=== PATIENT | female | born 1955 | race Caucasian/White ===

== ENCOUNTER → 2024-09-18 | Outpatient (CLI) | payer MEDICARE, SELFPAY ==
--- NOTE | 2024-09-18 12:52 | XR_ITS ---
Examination: PA lateral chest 2 views TECHNIQUE: Upright PA lateral chest 2 views Date and time: 09/18/2024 1318 hours INDICATIONS: Smoking history hypertension FINDINGS: Normal heart size Lungs are clear. Moderate osteopenia IMPRESSION: No active disease
--- NOTE | 2024-09-18 12:52 | XR_ITS ---
EXAMINATION: Cervical spine, 5 views Technique: Cervical spine AP, AP odontoid, lateral, bilateral obliques, 5 views Exam date and time: September 18, 2024 1312 hours Comparison April 27, 2022 INDICATIONS: Neck pain radiating to the arms with numbness in the arms months FINDINGS: Moderate osteopenia Advanced degenerative disc disease C3-C4, C4-C5, C5-C6, C6-C7 with diffuse moderate to advanced bilateral neural foraminal stenosis at these levels, most prominent C3-C4, C4-C5 Intact odontoid No cervical fracture IMPRESSION: Advanced degenerative disc disease as above
[2024-09-18 13:45] LABS: Basophils # (Auto) 0.1 Thou/mm3 (0.0-0.2); Basophils % (Auto) 1 % (0-2.5); Eosinophils # (Auto) 0.5 Thou/mm3 (0.0-0.5); Eosinophils % (Auto) 6 % (0-10); Hematocrit 38.8 % (36.0-46.0); Hemoglobin 13.3 g/dL (12.0-16.0); Immature Granulocytes % (Auto) 0 % (0-0); Immature Granulocytes Auto 0.01 Thou/mm3 (0.00-0.00); Lymphocytes # (Auto) 2.7 Thou/mm3 (1.0-4.8); Lymphocytes % (Auto) 34 % (10-50); Mean Corpuscular HGB Conc 34.3 g/dl (31.0-37.0); Mean Corpuscular Hemoglobin 29.7 pg (25.0-35.0); Mean Corpuscular Volume 87 fL (80-100); Monocytes # (Auto) 0.8 Thou/mm3 (0.0-0.8); Monocytes % (Auto) 10 % (0-12); Neutrophils # (Auto) 3.9 Thou/mm3 (1.8-7.7); Neutrophils % (Auto) 50 % (37-80); Nucleated Red Blood Cell % 0 /100 WBC (0); Platelet Count 398 Thou/mm3 (140-440); RDW Standard Deviation 42.5 fL (36.4-46.3); Red Blood Count 4.48 Miln/mm3 (4.00-5.20); White Blood Count 7.9 Thou/mm3 (3.6-11.0)
[2024-09-18 14:14] LABS: Alanine Aminotransferase 10 U/L (10-49); Albumin, Serum 4.7 gm/dL (3.4-4.8); Albumin/Globulin Ratio 1.7 (1.2-2.2); Alkaline Phosphatase 122 U/L (46-116); Anion Gap 8 (7-16); BUN/Creatinine Ratio 16 Ratio (12-20); Bilirubin,Total 0.5 mg/dL (0.3-1.2); Blood Urea Nitrogen 14 mg/dL (9-23); Calcium 9.6 mg/dL (8.3-10.6); Calcium (Corrected) 9.6 mg/dL (8.5-10.1); Carbon Dioxide 24.7 mMol/L (20.0-31.0); Cardiac Risk Estimate 4.4 RATIO (3.7-5.6); Chloride 109 mMol/L (98-107); Cholesterol 191 mg/dL (132-200); Creatinine (Component) 0.9 mg/dL (0.6-1.3); Globulin 2.7 gm/dL (2.3-3.5); Glucose 108 mg/dL (74-106); HDL Cholesterol 43 mg/dL (40-60); LDL Cholesterol,Calculated 131 mg/dL (0-130); Osmolality,Calculated 284 (275-295); Potassium 4.6 mMol/L (3.4-5.1); Sodium 142 mMol/L (136-145); Thyroid Stimulating Hormone < 0.01 uIU/mL (0.55-4.78); Total Protein 7.4 gm/dL (5.7-8.2); Triglycerides 87 mg/dL (30-150); eGFR > 60 See Note
[2024-09-18 14:31] LABS: T4 (Thyroxine) 11.9 mcg/dL (4.5-10.9)
== END | disposition home or self-care (01) ==
LOC: CDIM 12:42 → COPL 13:25
PROVIDERS: PCP Family Medicine; Referring Provider Family Medicine; Visit Provider Radiology Diagnostic Radiology
DX: R05.2 Subacute cough (principal); M50.323 Other cervical disc degeneration at C6-C7 level; E03.9 Hypothyroidism, unspecified; I79.8 Other disorders of arteries, arterioles and capillaries in diseases classified elsewhere; G90.09 Other idiopathic peripheral autonomic neuropathy; R79.9 Abnormal finding of blood chemistry, unspecified
CPT/HCPCS: 36415; 71046; 72050; 80053; 80061; 84436; 84443; 85025

== ENCOUNTER 2024-12-16 09:31 | Outpatient (AMB) | payer MEDICARE, SELFPAY ==
[2024-12-16 09:46] VITALS: BP 170/65; PULSE 63; RESP 18; TEMP 36.8; O2SAT 63; BMI 25.6
--- NOTE | 2024-12-16 09:46 | GSCOFFNT_ITS ---
Vital Signs - [facility] 12/16/24 09:46 Height 1.47 m Height Method Stated Weight 55.565 kg Weight Measurement Method Standing Scale BMI 25.6 BP 170/65 H Blood Pressure Source Automatic Cuff Blood Pressure Location Right Upper Arm Position Sitting Respiration 18 Pulse 63 Pulse Source Monitor Temp 98.2 F Temp Source Temporal Artery Scan Pulse Oximetry (%) 63 L Oxygen Delivery Method Room Air Med/Allergies Allergies & Medications Allergies Beta-Blockers (Beta-Adrenergic Bloc Allergy (Severe, Unverified 12/16/24 09:48) CAUSES STROKES ceftriaxone Allergy (Severe, Verified 12/16/24 09:48) Hives erythromycin base Allergy (Severe, Verified 12/16/24 09:48) Hives fluconazole Allergy (Severe, Verified 12/16/24 09:48) Hives Penicillins Allergy (Severe, Verified 12/16/24 09:48) Hives, STOPS BREATHING primidone Allergy (Severe, Verified 12/16/24 09:48) SUICIDAL rifampin Allergy (Severe, Verified 12/16/24 09:48) WILL KILL ME [id number] Reductase Inhibitor (Ucdknce-Aro-Vdc Reductase Inhibitor) Allergy (Severe, Unverified 12/16/24 09:48) CAN NOT WALK - SEVERE GARRIDO PAINS Sulfa (Sulfonamide Antibiotics) Allergy (Severe, Verified 12/16/24 09:48) HIVES, STOP BREATHING quetiapine Allergy (Unknown, Verified 12/16/24 09:48) SEVER DROWSY Estrogens Adverse Reaction (Severe, Verified 12/16/24 09:48) UNCONSCIOUS, PASSES OUT, STROKES Medication Reconciliation Buspirone * (BUSPAR *) 30 mg PO BID #0 tabs 03/01/16 [History Confirmed 12/16/24] clopidogrel 75 mg tablet (Plavix) 75 mg PO QDAY #0 tabs 03/01/16 [History Confirmed 12/16/24] Levothyroxine * (SYNTHROID *) 150 mcg PO QDAY #0 tabs 10/10/16 [History Confirmed 12/16/24] albuterol sulfate 90 mcg/actuation aerosol inhaler (Proventil HFA) 2 puff inhalation Q4HR PRN SHORTNESS OF BREATH #0 inhalations 10/10/16 [History Confirmed 12/16/24] metoprolol succinate 50 mg tablet,extended release 24 hr (Toprol XL) 50 mg PO QDAY ##0 10/10/16 [History Confirmed 12/16/24] lisinopril 20 mg tablet 20 mg PO QDAY 12/16/24 [History Confirmed 12/16/24] omeprazole 20 mg tablet,delayed release 20 mg PO QDAY 12/16/24 [History Confirmed 12/16/24] peg 3350-electrolytes 236 gram-22.74 gram-6.74 gram-5.86 gram solution (Golytely) 240 ml PO Q10M Colonoscopy prep #4,000 mL 12/16/24 [Rx] venlafaxine 25 mg tablet 25 mg PO QDAY 12/16/24 [History Confirmed 12/16/24] MA Intake Visit Data Collection New Patient or Established: Established Patient (seen at [facility] within 3 years) Reason for Visit:: COLONOSCOPY REFERRAL Pain Present Currently: Yes Pain Location: Abdomen Pain scale:: 7 Pain Scale Used: [place]oss/Numerical Internal Affairs Investigator Required: No PCP or OBGYN visit in last 3 months: Yes Hx Now: No Do You Feel Safe at Home: Yes Authorities Contacted: N/A Smoking Status Smoking Status: Never smoker Immunization / Flu Flu Vaccine in the Last 12 Months: No Flu Vaccine Exclusion Criteria: Refused by Patient Past Medical History Social History SMOKING STATUS: Smoking status: Never smoker ALCOHOL: Alcohol Intake: Current ALCOHOL FREQUENCY: Alcohol Intake Frequency: holidays/special occasions only Travel Risk Travel Hx Recent Travel: No HPI HPI Narrative 69 yo Female with a PMHx of Celiac Disease presents to the clinic for a colonoscopy d/t a history of polyps . As per the pt, she has had intermittent incontinence of soft stool and diarrhea since her last doctor's visit. She has had 2 colonoscopies in the past, one in 2007 and the second in 2014, reporting having had polyps during each scope. 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 Pt denies pelpitations, temperature insensitivity, nausea, and vomiting but states she has new abdominal discomfort as well as occasional thin stools ROS Review of Systems Narrative Review of Systems: General:denies vomiting, nausea. + Diarrhea GI: + intermittent fecal incontinence Endo: denies palpitations, heat/cold insensitivity All ROS was reviewed and normal except for what is documented. Objective/Exam Narrative Physical exam: General: 69 yo well mannered, well dressed, conversational female. Skin: No erythema, pallor, or jaundice. Approximately 5 in vertical surgical scar observed midline, crossing the umbilicus. Cardiac: No edema noted in all 4 extremities. Pulses intact in all 4 extremities. GI: Abdomen was soft, non-tender, and non-distended. Pt denies pain in all 4 quadrants, epigastric, and suprapubic areas. Abdomen was normotympanic to percussion. All other systems were reviewed and were found to be normal, unless otherwise noted. Assessment & Plan Diagnosis / Problem List (1) Encounter for diagnostic colonoscopy due to change in bowel habits: Status: Acute Assessment & Plan: 69 yo well-mannered, well-dressed, conversational, mildly-distressed Female with a PMHx of Celiac Disease presenting with abdominal pain and intermittent fecal incontinence d/t colonic polyps. Schedule an urgent colonoscopy to examine colon, extract potential colonic polyps, and provide symptomatic relief. I explained benefits/risks of colonoscopy including bleeding, perforation requiring emergency surgery as well as the possibility of aborting prematurely for safety Advanced Care Planning Advance care planning discussed with:: other Office Procedures GNS Level of Care Nursing/Assessment Patient Status: Established Patient Nursing Assessment/Reassesment: Medication Reconciliation, Update PMH in EMR and Vital Signs Coordination of Care: Complex Care and Chronic Disease 1-5, Education Complex Pt/Fam, Consent,records obtained, informed consent, 1 Ins Authorization, Results/Orders obtained and Staff clarify orders Established Patient Charge Established Patient Point Assignment: 110 Established Patient Point Charge: EP Level 3 (80-115) Patient Portal Questionaires Social History Tobacco History Smoking Status: Never smoker Alcohol History Alcohol Intake: Current Alcohol Intake Frequency: holidays/special occasions only Domestic Abuse History Do You Feel Safe at Home: Yes Review of Systems Report any current symptoms Only answer those that you have currently: Past Medical History Past Medical History Have you ever been diagnosed with any of the following:
== END 2024-12-16 10:30 | disposition home or self-care (01) ==
PROVIDERS: PCP Family Medicine; Referring Provider Family Medicine; Supervising Provider Surgery; Visit Provider Surgery
DX: R19.4 Change in bowel habit (principal)
CPT/HCPCS: 99213; G0463

== ENCOUNTER 2024-12-24 08:05 | Day surgery (SDC) | payer MEDICARE, SELFPAY ==
[2024-12-24] VITALS (13 sets, daily range): BP systolic 121–163; BP diastolic 66–101; PULSE 55–85; RESP 14–20; TEMP 36.1–37.1; O2SAT 95–100; BMI 25.2
[2024-12-24] MEDS: RINGERS LACTATED 500 ML 500 ML 20 ML IV (09:30)
--- NOTE | 2024-12-24 11:04 | SUR.PHASEII ---
pt awake and alert, breathing unlabored on room air. v/s stable. pt able to ambulate to wheelchair with steady gait. d/c instructions given with friend Salvatore in room, all questions answered. pt d/c via wheelchair with all belongings.
== END 2024-12-24 11:04 | disposition home or self-care (01) ==
PROVIDERS: PCP Family Medicine; Referring Provider Surgery; Visit Provider Surgery
PROC: 0DJD8ZZ Inspection of Lower Intestinal Tract, Via Natural or Artificial Opening Endoscopic (ICD-10-PCS; CPT 45378; principal; 2024-12-24 10:00)
DX: K57.30 Diverticulosis of large intestine without perforation or abscess without bleeding (principal); Z86.0100 Personal history of colon polyps, unspecified; R19.4 Change in bowel habit
CPT/HCPCS: G0105; A4649; J1200; J2250; J3010; J7120